=== PATIENT | male | born 1965 | race Caucasian/White ===

== ENCOUNTER 2020-05-11 22:59 | Emergency (ER) | payer BC ==
--- NOTE | 2020-05-11 23:31 | EDM.PDOC ---
ED HPI GENERAL MEDICAL PROBLEM - General Chief Complaint: Cardiovascular Problem Stated Complaint: CHEST DISCOMFORT Time Seen by Provider: 05/11/20 23:00 Source of Information: Reports: Patient History Limitations: Reports: No Limitations - History of Present Illness INITIAL COMMENTS - FREE TEXT/NARRATIVE: Phillip is a 54 year old male who presents to ER with complaints of chest discomfort. Onset of pain was while sitting and "eating a bowl of noodles". Does feel short of breath, states has to concentrate in order to breath easy. Was sick on Thursday with nausea and vomiting. States had forceful vomiting x3 and has been sore since that day, mostly in chest and abdomen. Has not been active since that day as a result. Notes the pain is lower chest and upper abdomen, bilateral with radiation somewhat to his back. Feels nauseated yet at times. No vomiting since Thursday. No diarrhea. No fevers. Admits that pain is more intense with movement but denies pain with deep breaths. No known history of cardiac events. Does take meds for hypertension and hyperlipidemia. Had stress test many years ago. Duration: Day(s):, Intermittent Location: Reports: Chest Quality: Reports: Ache Severity: Mild Improves with: Reports: Rest Worsens with: Reports: Movement Associated Symptoms: Reports: Chest Pain, Nausea/Vomiting, Shortness of Breath. Denies: Confusion, Cough, Fever/Chills, Loss of Appetite, Syncope Past Medical History Cardiovascular History: Reports: High Cholesterol, Hypertension Neurological History: Reports: Seizure Social & Family History - Tobacco Use Tobacco Use Status *Q: Unknown Ever Used Tobacco ED ROS GENERAL - Review of Systems Review Of Systems: See Below Constitutional: Denies: Fever, Chills, Malaise, Weakness, Fatigue, Diaphoresis HEENT: Denies: Ear Pain, Sinus Problem, Throat Pain Respiratory: Reports: Shortness of Breath. Denies: Cough Cardiovascular: Reports: Chest Pain. Denies: Edema, Lightheadedness Endocrine: Reports: Fatigue GI/Abdominal: Reports: Nausea. Denies: Abdominal Pain, Constipation, Diarrhea, Vomiting : Reports: No Symptoms Musculoskeletal: Reports: No Symptoms Skin: Reports: No Symptoms Neurological: Reports: No Symptoms ED EXAM, GENERAL - Physical Exam Exam: See Below Exam Limited By: No Limitations General Appearance: Alert, WD/WN, No Apparent Distress Ears: Normal External Exam, Normal TMs Nose: Normal Inspection, Normal Mucosa, No Blood Throat/Mouth: Normal Inspection, Normal Oropharynx Head: Normocephalic Neck: Normal Inspection, Supple, Non-Tender Respiratory/Chest: No Respiratory Distress, Lungs Clear, Normal Breath Sounds Cardiovascular: Regular Rate, Rhythm GI/Abdominal: Normal Bowel Sounds, Soft, Non-Tender Extremities: Normal Inspection, No Pedal Edema Neurological: Alert, Oriented Skin Exam: Warm, Dry Course - Orders/Labs/Meds Orders: Active Orders 24 hr Category Date Time Status EKG 12 Lead [EKG Documentation Completion] [RC] AM Care 05/11/20 23:12 Active Chest 2V [CR] Stat Exams 05/11/20 23:12 Taken Labs: Laboratory Tests 05/11/20 05/11/20 05/11/20 Range/Units 23:40 23:40 23:40 WBC 8.3 (4.0-10.0) x10^3/uL RBC 4.88 (4.5-6.0) x10^6/uL Hgb 14.7 (14.0-18.0) g/dL Hct 44.0 (40.0-52.0) % MCV 90.2 (78.0-93.0) fL MCH 30.1 (26.0-32.0) pg MCHC 33.4 (32.0-36.0) g/dL RDW Coeff of [place] 13.2 (10.0-15.0) % Plt Count 286 (130-400) x10^3/uL Neut % (Auto) 60.9 (50.0-80.0) % Lymph % (Auto) 23.7 L (25.0-50.0) % [place] % (Auto) 13.3 H (2.0-11.0) % Eos % (Auto) 1.7 (0.0-4.0) % Baso % (Auto) 0.4 (0.2-1.2) % D-Dimer, Quantitative 0.73 H (<=0.58) mg/LFEU Sodium 142 (136-145) mmol/L Potassium 3.1 L (3.5-5.1) mmol/L Chloride 104 (98-107) mmol/L Carbon Dioxide 28 (21-32) mmol/L Anion Gap 13.1 (5-15) mmol/L BUN 24 H (7-18) mg/dL Creatinine 1.0 (0.70-1.30) mg/dL Est Cr Clr Drug Dosing TNP Estimated GFR (MDRD) > 60 Glucose 103 (74-106) mg/dL Calcium 9.0 (8.5-10.1) mg/dL Corrected Calcium 9.24 (8.5-10.1) mg/dL Total Bilirubin 0.4 (0.2-1.0) mg/dL AST 23 (15-37) U/L ALT 62 (16-63) U/L Alkaline Phosphatase 74 (46-116) U/L Lactate Dehydrogenase 194 (85-227) U/L Creatine Kinase 105 (39-308) U/L Troponin I High Sens 5 (<=76) ng/L C-Reactive Protein 3.1 H (<=0.9) mg/dL Total Protein 7.0 (6.4-8.2) g/dL Albumin 3.7 (3.4-5.0) g/dL Globulin 3.3 Albumin/Globulin Ratio 1.12 - Re-Assessments/Exams Free Text/Narrative Re-Assessment/Exam: 05/12/20 0000-Patient is feeling good. No further pain. 0030-Labs are all noted. Potassium is mildly low at 3.1. Advised to increase oral intake or take supplement. Troponin is negative. Advised to follow up if persisting pain or concern. Departure - Departure Time of Disposition: 00:31 Disposition: Home, Self-Care 01 Condition: Good Clinical Impression: Atypical chest pain Forms: ED Department Discharge Additional Instructions: 1. Push fluids 2. Increase oral potassium intake, ie. bananas, green leafy vegetables 3. Rest 4. Follow up with primary care provider if any persisting concerns. - My Orders Last 24 Hours: My Active Orders 05/11/20 23:12 EKG 12 Lead [EKG Documentation Completion] [RC] AM Chest 2V [CR] Stat - Assessment/Plan Last 24 Hours: My Active Orders 05/11/20 23:12 EKG 12 Lead [EKG Documentation Completion] [RC] AM Chest 2V [CR] Stat
[2020-05-12 00:10] LABS: CHLORIDE,CL 104 mmol/L (98-107); SODIUM,NA 142 mmol/L (136-145)
[2020-05-12 00:18] LABS: ANION GAP 13.1 mmol/L (5-15)
--- NOTE | 2020-05-12 08:25 | CR ---
[id number] RAD/RAD Chest PA And Lateral EXAM: RAD Chest PA And Lateral CLINICAL DATA: CHEST PAIN COMPARISON: CORRELATION IS MADE WITH JANUARY 04, 2020 FINDINGS: The lungs are clear. A ventriculoperitoneal shunt is seen The cardiomediastinal contour is prominent but stable. The regional bones and soft tissues are unremarkable. IMPRESSION: NO ACUTE PROCESS. Pb Pemberton MD 05/12/20 0823 Thank you for allowing us to participate in the care of your patient.
== END 2020-05-12 00:43 | disposition home or self-care (01) ==
LOC: VM.ED 22:59
DX: R07.89 Other chest pain (principal); R06.02 Shortness of breath; R53.83 Other fatigue; R11.0 Nausea; I10 Essential (primary) hypertension
CPT/HCPCS: 71046; 80053; 82550; 83615; 84484; 85025; 85379; 86140; 93005; 99284; 99285-25